=== PATIENT | female | born 1990 | race Caucasian/White ===

== ENCOUNTER → 2021-06-23 | Outpatient (CLI) | payer OTHER ==
[~2021-06-23] MED LIST: ZOFRAN ODT 4 MG4 MG PO
== END ==
LOC: KOH-I 15:35
DX: M79.641 Pain in right hand (principal)
CPT/HCPCS: 73130

== ENCOUNTER 2021-11-01 15:18 | Observation (INO) | payer OTHER ==
[~2021-11-01] VITALS: Ht 172.7 cm; Wt 117.9 kg
[2021-11-01 16:17] LABS: HEMOGLOBIN 14.3 gm/dl (12.3-15.3); RED BLOOD COUNT 4.45 M/UL (4.00-5.10); WHITE BLOOD COUNT 11.9 K/UL (4.5-11.0)
[2021-11-01 16:43] LABS: BUN/CREATININE RATIO 17 (0-10)
[2021-11-02] MEDS ORDERED: AMLODIPINE BESYL5 MG PO (12:25)
[2021-11-02] MEDS ORDERED: LEXAPRO10 MG PO (12:25)
[2021-11-02] MEDS ORDERED: ZOFRAN 4 MG TAB4 MG PO (12:25)
[2021-11-02] MEDS ORDERED: LIPITOR TAB 2020 MG PO (12:25)
== END 2021-11-02 13:50 | disposition home or self-care (01) ==
LOC: ER1 15:18 → CCU 20:45 → CDU 20:45 → CCU 20:45
PROVIDERS: Physician Assistant; ADMIT Internal Medicine
DX: F07.81 Postconcussional syndrome (principal); R11.0 Nausea; I10 Essential (primary) hypertension; E78.5 Hyperlipidemia, unspecified; F41.8 Other specified anxiety disorders; R55 Syncope and collapse; Z72.0 Tobacco use
CPT/HCPCS: ECHO; 70450; 71045; 80053; 80307; 81001; 82550; 82553; 83874; 84484; 84703; 85025; 93005; 93306; G0378

== ENCOUNTER → 2022-05-27 | Outpatient (CLI) | payer OTHER ==
[~2022-05-27] MED LIST changes: +AMITRIPTYLINE H10 MG PO; +AMLODIPINE BESYL5 MG PO; +LEXAPRO10 MG PO; +LIPITOR TAB 2020 MG PO; +ZOFRAN 4 MG TAB4 MG PO
[2022-05-27 09:57] LABS: HEMOGLOBIN 15.3 gm/dl (12.3-15.3); RED BLOOD COUNT 4.79 M/UL (4.00-5.10); WHITE BLOOD COUNT 10.8 K/UL (4.5-11.0)
[2022-05-27 14:49] LABS: BUN/CREATININE RATIO 17 (0-10)
== END ==
LOC: OPSV2 08:48
PROVIDERS: Obstetrics & Gynecology
DX: Z01.812 Encounter for preprocedural laboratory examination (principal); N84.0 Polyp of corpus uteri
CPT/HCPCS: 36415; 80053; 85025

== ENCOUNTER → 2022-06-04 | Day surgery (SDC) | payer OTHER ==
[~2022-06-04] MED LIST changes: +HYDROCODON-ACE1 EAC4 PO; +IBUPROFEN600 MG PO
== END | disposition home or self-care (01) ==
LOC: OR 06:04
DX: N84.0 Polyp of corpus uteri (principal); E78.5 Hyperlipidemia, unspecified; I10 Essential (primary) hypertension; F17.290 Nicotine dependence, other tobacco product, uncomplicated
CPT/HCPCS: 84703; J1100; J1885; J2001; J2250; J2405; J2704; J2795; J3010; J7120